=== PATIENT | female | born 1965 | race Caucasian/White ===

== ENCOUNTER 2020-02-05 09:05 | Outpatient (CLI) | payer BC ==
--- NOTE | 2020-02-05 09:30 | MMO ---
Bilateral MAMMO Bilat Screen [facility]. CLINICAL HISTORY: Patient is 54 years old and is seen for screening. The patient has no family history of breast cancer. The patient has no personal history of cancer. The patient has a history of right Cyst Aspiration in January, - Abscess. VIEWS: The views performed were: bilateral craniocaudal with tomosynthesis and bilateral mediolateral oblique with tomosynthesis. FILMS COMPARED: The present examination has been compared to prior imaging studies performed at [facility] on 02/01/2003 and 05/06/2003. This study has been interpreted with the assistance of computer-aided detection. MAMMOGRAM FINDINGS: The breasts are heterogeneously dense, which could obscure a lesion on mammography. There are no suspicious masses, suspicious calcifications, or new areas of architectural distortion. IMPRESSION: THERE IS NO MAMMOGRAPHIC EVIDENCE OF MALIGNANCY. A ROUTINE FOLLOW-UP MAMMOGRAM IN 1 YEAR IS RECOMMENDED. THE RESULTS OF THIS EXAM WERE SENT TO THE PATIENT. ACR BI-RADS Category 1 - Negative MAMMOGRAPHY NOTE: 1. A negative mammogram report should not delay a biopsy if a dominant of clinically suspicious mass is present. 2. Approximately 10% to 15% of breast cancers are not detected by mammography. 3. Adenosis and dense breasts may obscure an underlying neoplasm. Reported by: KASSI STALEY MD Electonically Signed: [id number]
== END 2020-02-05 09:06 | disposition home or self-care (01) ==
LOC: BICMAMMO 09:05
PROVIDERS: ATTEND Physician Assistant
DX: Z12.31 Encounter for screening mammogram for malignant neoplasm of breast (principal)
CPT/HCPCS: 77063; 77067

== ENCOUNTER 2020-03-03 06:41 | Outpatient (CLI) | payer BC, OTHER ==
[2020-03-03 18:16] LABS: INR-International Normal Ratio 0.9; Prothrombin Time 12.6 sec (12.0-14.7)
[2020-03-03 18:25] LABS: #Eosinphils 0.1 thou/uL (0.0-0.7); #Lymphocytes 1.4 thou/uL (1.20-3.40); #Monocytes 0.5 thou/uL (0.11-0.59); #Neutrophils 4.2 thou/uL (1.40-6.50); %Basophils 0.6 % (0.0-1.0); %Eosinophils 1.6 % (0.0-10.0); %Lymphocytes 22.9 % (21.0-51.0); %Monocytes 8.4 % (0.0-10.0); %Neutrophils 66.5 % (42.0-75.0); Mean Corpuscular HGB CONC 34.6 g/dL (32.0-36.0); Mean Corpuscular Hemoglobin 35.6 pg (27.0-31.0); Mean Platelet Volume 7.9 fL (7.4-10.4); Platelet Count 275 thou/uL (130-400); RBC Distribution Width 11.5 % (11.5-14.5); Red Blood Cell (RBC) Count 3.94 mill/uL (4.20-5.40); White Blood Cell (WBC) Count 6.3 thou/uL (4.8-10.8)
[2020-03-03 18:43] LABS: BHCG - Serum Negative (NEGATIVE); Pregs Control Background? CLEAR/WHITE (CLR/WHITE); Pregs Control Bar Appear? YES (CONTROL BAR)
[2020-03-04 11:35] LABS: SARS-CoV-2 MS2 Positive; SARS-CoV-2 N Gene Negative; SARS-CoV-2 S Gene Negative; SARS-CoV-2 by NAA Not Detected (NotDetected); SARS-CoV-2 orf1ab Negative
--- NOTE | 2020-03-04 14:58 | EKG ---
Test Reason : PREOP Blood Pressure : / mmHG Vent. Rate : 069 BPM Atrial Rate : 069 BPM P-R Int : 158 ms QRS Dur : 088 ms QT Int : 400 ms P-R-T Axes : 070 088 023 degrees QTc Int : 428 ms Normal sinus rhythm Low voltage QRS Borderline ECG No previous ECGs available Confirmed by DEBBY ROBERTS (2) on 03/04/2020 2:58:44 PM Referred By: Pili LEBRON Confirmed By:DEBBY ROBERTS
== END 2020-03-03 06:42 | disposition home or self-care (01) ==
LOC: LABBT 06:41
PROVIDERS: ATTEND Orthopaedic Surgery
DX: Z01.818 Encounter for other preprocedural examination (principal); M75.102 Unspecified rotator cuff tear or rupture of left shoulder, not specified as traumatic; Z20.828 Contact with and (suspected) exposure to other viral communicable diseases
CPT/HCPCS: 84703; 85025; 85610; 87635; 93005; 93010; U0003

== ENCOUNTER 2020-03-06 08:27 | Day surgery (SDC) | payer BC ==
[2020-03-05 11:24] VITALS: BMI 38.4
[2020-03-06] MEDS ORDERED: Fentanyl 100 MCG/2 ML VIAL ONE (08:59)
[2020-03-06] MEDS ORDERED: Midazolam HCl 2 mg/2 ml Vial ONE (08:59)
[2020-03-06] MEDS ORDERED: Ropivacaine 0.2% 550 ML 550 ML NERVE BLCK SCH (10:00)
[2020-03-06] MEDS ORDERED: HYDROcodone/Acetaminophen 5/325 mg Tablet PO PRN ×2 (10:00)
[2020-03-06] MEDS ORDERED: Promethazine HCl 25 MG/ML VIAL IM PRN (10:00)
[2020-03-06] MEDS ORDERED: traMADol HCl 50 MG TAB PO PRN ×2 (10:00)
[2020-03-06] MEDS ORDERED: Ondansetron PF 4 MG/2 ML Vial IVP PRN (10:00)
[2020-03-06] MEDS ORDERED: Zolpidem Tartrate 5 MG TAB PO PRN (10:00)
[2020-03-06] MEDS ORDERED: Bupivacaine/Epinephrine 0.25% 30 ML VIAL ONE (10:10)
[2020-03-06] MEDS ORDERED: Lidocaine 1% PF 5 ML VIAL ONE (11:46)
[2020-03-06] MEDS ORDERED: PHENYLEPHRINE-NS 100 MCG/ML 10 ML SYRINGE ONE ×2 (11:46)
[2020-03-06] MEDS ORDERED: Rocuronium Bromide 10 MG/ML (10ML VIAL) ONE (11:46)
[2020-03-06] MEDS ORDERED: Ropivacaine 0.5% HCl/PF (150 MG/30 ML VIAL) ONE (11:46)
[2020-03-06] MEDS ORDERED: Ropivacaine 0.2% HCl/PF (40 MG/20 ML VIAL) ONE (11:46)
[2020-03-06] MEDS ORDERED: Glycopyrrolate 0.2 MG/ML 5 ML SYRINGE ONE (11:46)
[2020-03-06] MEDS ORDERED: PROPOFOL 200 MG/20 ML VIAL ONE (11:46)
[2020-03-06] MEDS ORDERED: EPHEDRINE 25 MG/5 ML SYRINGE ONE (11:46)
[2020-03-06] MEDS ORDERED: Ketorolac Tromethamine 30 MG/ML VIAL IVP SCH (12:00)
[2020-03-06] MEDS ORDERED: SUGAMMADEX SODIUM 200 MG/2 ML VIAL ONE (12:12)
[2020-03-06] MEDS ORDERED: Ondansetron PF 4 MG/2 ML Vial ONE (13:23)
[2020-03-06] MEDS ORDERED: Promethazine HCl 25 MG/ML VIAL ONE (13:36)
--- NOTE | 2020-03-06 17:51 | OP ---
DATE OF PROCEDURE: 03/06/2020 PREOPERATIVE DIAGNOSIS: Left full-thickness rotator cuff tear with biceps rupture. POSTOPERATIVE DIAGNOSES: 1. Left full-thickness supraspinatus and infraspinatus tear. 2. Leading edge of subscapularis tear. 3. Biceps rupture. PROCEDURE PERFORMED: Left arthroscopic rotator cuff repair. SANITATION LABORER: None. ANESTHESIA: Dr. Zafar. The patient received general endotracheal intubation with interscalene block. ESTIMATED BLOOD LOSS: Less than 30 mL. TOURNIQUET TIME: None. IMPLANTS: Two 5.5 corkscrews, 2.9 PushLock, and 4.75 SwiveLock x2. ANTIBIOTICS: Ancef 2 g. COMPLICATIONS: None. HISTORY OF PRESENT ILLNESS: Ms. Rowell is a 54-year-old female with history of bariatric sleeve, left shoulder pain. She is an active department store general manager, has pain with overhead activities. I discussed with MRI evidence shows a full-thickness rotator cuff repair for rupture biceps. She understood the risks and benefits of arthroscopic repair to include pain, scar, bleeding, infection, damage to vital structures, decreased range of motion and strength, failure of repair, continued pain despite surgical intervention, damage to vital structures, loss of life or limb. The patient understood the risks and benefits and elects to proceed. DESCRIPTION OF PROCEDURE: Time-out was performed designating the patient's left upper extremity as the operative site based on site, consents, and marking. After time-out, the patient's left upper extremity was prepped and draped in sterile fashion. Posterior working portal was placed to visualize intra-articularly. Anterior working portal was placed and cannulas placed in position. I debrided off some of the bursa within the shoulder, all the ruptured biceps, all the intra-articular portion of the rotator cuff tear. I debrided the patient's footprint and found the subscap leading edge tear. I placed a bucket-handle #2 FiberWire and placed it on SwiveLock to help to abut the shoulder anteriorly and better stabilize it anteriorly. I then moved subacromially, placed our lateral working portal, debrided off the bursa, debrided the bone to help with bleeding footprint for application of my anchors, placed two 5.5 corkscrews, and then passed 4 stitches through the horizontal mattress stitches I placed all four knots down and then placed 2 lateral 4.75 SwiveLock to compress the cuff down. I cut the sutures, took final pictures, washed and closed with 3-0 nylon. The patient will begin elbow, wrist, and hand motion, remain in a sling until followup in 2 weeks. She will follow up with me in 2 weeks for begin passive range of motion, exercises of her shoulder. The patient's outlook is guarded because of the patient's previous bariatric surgery as well as her friability for tissues. We will continue to monitor throughout the course of fixation. Job ID: [id number]
== END 2020-03-06 15:15 | disposition home or self-care (01) ==
LOC: SDC 08:27
PROVIDERS: ATTEND Orthopaedic Surgery
PROC: 0LQ24ZZ Repair Left Shoulder Tendon, Percutaneous Endoscopic Approach (ICD-10-PCS; principal; 2020-03-06)
PROC: 0RNK4ZZ Release Left Shoulder Joint, Percutaneous Endoscopic Approach (ICD-10-PCS; principal; 2020-03-06)
DX: M75.122 Complete rotator cuff tear or rupture of left shoulder, not specified as traumatic (principal); S46.112A Strain of muscle, fascia and tendon of long head of biceps, left arm, initial encounter; M19.012 Primary osteoarthritis, left shoulder; K21.9 Gastro-esophageal reflux disease without esophagitis; M17.0 Bilateral primary osteoarthritis of knee; Z79.899 Other long term (current) drug therapy
CPT/HCPCS: A4306; C1713; J0690; J2250; J2405; J2550; J2704; J2795; J3010

== ENCOUNTER 2021-05-19 05:25 | Observation (INO) | payer BC ==
[2021-05-14 09:53] VITALS: BMI 36.2
[2021-05-19] MEDS ORDERED: ceFAZolin 2 GM/DEX 5% 100 ML BAG ONE (06:24)
[2021-05-19] MEDS ORDERED: Tranexamic Acid 1,000 MG/10 ML VIAL ONE (06:25)
[2021-05-19] MEDS ORDERED: Sodium Chloride 0.9% 100 ML ONE (06:26)
[2021-05-19] MEDS ORDERED: Fentanyl 100 MCG/2 ML VIAL ONE ×4 (06:29→14:13)
[2021-05-19] MEDS ORDERED: Midazolam HCl 2 mg/2 ml Vial ONE (06:29)
[2021-05-19] MEDS ORDERED: Lidocaine 1% (PF) 30 ML VIAL ONE (06:29)
[2021-05-19] MEDS ORDERED: Bupivacaine HCl 0.5%/Epinephrine 1:200,000/PF 30 ml Vial ONE (06:44)
[2021-05-19] MEDS ORDERED: Dexamethasone 20 MG/5 ML VIAL ONE (06:44)
[2021-05-19] MEDS ORDERED: PROPOFOL 200 MG/20 ML VIAL ONE (06:44)
[2021-05-19] MEDS ORDERED: Ondansetron PF 4 MG/2 ML Vial ONE (06:44)
[2021-05-19] MEDS ORDERED: ePHEDrine 50 MG/ML VIAL ONE (06:44)
[2021-05-19] MEDS ORDERED: Ketorolac Tromethamine 30 MG/ML VIAL ONE (06:44)
[2021-05-19] MEDS ORDERED: Lidocaine 1% PF 5 ML VIAL ONE (06:44)
[2021-05-19] MEDS ORDERED: Bupivacaine 0.25% 10 ML VIAL ONE ×3 (07:00→07:59)
[2021-05-19] MEDS ORDERED: Fentanyl 100 MCG/2 ML VIAL IV PRN (07:26)
[2021-05-19] MEDS ORDERED: traMADol HCl 50 MG TAB PO PRN (07:30)
[2021-05-19] MEDS ORDERED: Promethazine HCl 25 MG/ML VIAL IM PRN ×3 (07:30→15:25)
[2021-05-19] MEDS ORDERED: Ropivacaine 0.2% 550 ML 550 ML NERVE BLCK SCH (07:30)
[2021-05-19] MEDS ORDERED: HYDROcodone/Acetaminophen 10/325 mg Tablet PO PRN (07:30)
[2021-05-19] MEDS ORDERED: Ondansetron PF 4 MG/2 ML Vial IVP PRN (07:30)
[2021-05-19] MEDS ORDERED: Zolpidem Tartrate 5 MG TAB PO PRN ×2 (07:30→15:25)
[2021-05-19] MEDS ORDERED: Bupivacaine PF 0.5% 30 ML VIAL ONE (07:55)
[2021-05-19] MEDS ORDERED: HYDROmorphone 2 MG/ML VIAL SLOW IVP PRN (09:56)
[2021-05-19] MEDS ORDERED: PACU-Morphine 4MG/ML VIAL SLOW IVP PRN (09:56)
[2021-05-19] MEDS ORDERED: Ondansetron HCl/PF 4 MG/2 ML Vial IVP PRN (09:56)
[2021-05-19] MEDS ORDERED: Promethazine HCl 25 MG/ML VIAL IVPB PRN (09:56)
[2021-05-19] MEDS ORDERED: HYDROmorphone 0.5 MG/0.5 ML SYRINGE ONE ×3 (11:06→14:23)
[2021-05-19] MEDS ORDERED: Ketorolac Tromethamine 30 MG/ML VIAL IVP SCH (12:00)
[2021-05-19] MEDS ORDERED: diphenhydrAMINE 25 MG CAP PO PRN (15:25)
[2021-05-19] MEDS ORDERED: Acetaminophen 325 MG TAB PO PRN (15:25)
[2021-05-19] MEDS ORDERED: Multivitamin W/ Minerals 1 TAB PO SCH (15:25)
[2021-05-19] MEDS ORDERED: Aspirin 81 mg Enteric Coated Tablet PO SCH (15:45)
[2021-05-19] MEDS ORDERED: Ferrous Gluconate 324 MG TAB PO SCH (15:45)
[2021-05-19] MEDS ORDERED: Rizatriptan Benzoate 10 MG MLT TAB PO PRN (16:19)
[2021-05-19] MEDS ORDERED: FLU VACC QS2021-22(6MOS UP)/PF 60 MCG/0.5 ML SYRINGE IM ONE (17:15)
[2021-05-19] MEDS: Ondansetron PF 4 MG/2 ML Vial IVP PRN (17:55)
[2021-05-19] MEDS: ceFAZolin Sodium/D5W 2 GM in Premix Bag 1 BAG IVPB SCH ×2 (17:56→23:35)
[2021-05-19] MEDS: Sodium Chloride 0.9% 1,000 ML IV SCH (18:28)
[2021-05-19] MEDS ORDERED: Vancomycin HCl 1.5 GM in Sodium Chloride 0.9% 250 ML 300 ML IVPB SCH (20:00)
[2021-05-19] MEDS: Senokot S 8.6-50 MG TAB PO SCH (20:33)
[2021-05-19] MEDS: Aspirin 81 mg Enteric Coated Tablet PO SCH (20:33)
[2021-05-19] MEDS: Ferrous Gluconate 324 MG TAB PO SCH (20:33)
[2021-05-20] MEDS: Sodium Chloride 0.9% 1,000 ML IV SCH ×3 (02:09→23:03)
[2021-05-20 04:24] LABS: Mean Corpuscular HGB CONC 34.8 g/dL (32.0-36.0); Mean Corpuscular Hemoglobin 35.6 pg (27.0-31.0); Mean Platelet Volume 6.6 fL (7.4-10.4); Platelet Count 242 thou/uL (130-400); RBC Distribution Width 11.5 % (11.5-14.5); Red Blood Cell (RBC) Count 3.66 mill/uL (4.20-5.40)
[2021-05-20] MEDS: HYDROcodone/Acetaminophen 10/325 mg Tablet PO PRN ×3 (09:29→20:26)
[2021-05-20] MEDS: Ascorbic Acid 500 mg Chewable Tablet PO SCH (09:46)
[2021-05-20] MEDS: Senokot S 8.6-50 MG TAB PO SCH ×2 (09:46→20:19)
[2021-05-20] MEDS: Aspirin 81 mg Enteric Coated Tablet PO SCH ×2 (09:46→20:19)
[2021-05-20] MEDS: Ferrous Gluconate 324 MG TAB PO SCH ×2 (09:46→20:19)
[2021-05-20] MEDS: Potassium Chloride 10 MEQ TAB PO SCH (09:47)
[2021-05-20] MEDS: traMADol HCl 50 MG TAB PO PRN ×2 (11:47→19:09)
[2021-05-20] MEDS: Ondansetron PF 4 MG/2 ML Vial IVP PRN (14:53)
[2021-05-21] MEDS: HYDROcodone/Acetaminophen 10/325 mg Tablet PO PRN ×3 (03:25→13:27)
[2021-05-21 06:28] LABS: Hemoglobin 12.2 g/dL (12.0-16.0); Mean Corpuscular HGB CONC 33.3 g/dL (32.0-36.0); Mean Corpuscular Hemoglobin 34.8 pg (27.0-31.0); Mean Platelet Volume 7.1 fL (7.4-10.4); Platelet Count 233 thou/uL (130-400); RBC Distribution Width 11.6 % (11.5-14.5); White Blood Cell (WBC) Count 8.1 thou/uL (4.8-10.8)
[2021-05-21] MEDS: Ascorbic Acid 500 mg Chewable Tablet PO SCH (09:21)
[2021-05-21] MEDS: Aspirin 81 mg Enteric Coated Tablet PO SCH (09:22)
[2021-05-21] MEDS: Potassium Chloride 10 MEQ TAB PO SCH (09:22)
[2021-05-21] MEDS: Sodium Chloride 0.9% 1,000 ML IV SCH (09:22)
[2021-05-21] MEDS: Senokot S 8.6-50 MG TAB PO SCH (09:22)
[2021-05-21] MEDS: Ferrous Gluconate 324 MG TAB PO SCH (09:22)
[2021-05-21 11:37] VITALS: BP 125/85; TEMP 97.5
== END 2021-05-21 13:25 | disposition home or self-care (01) ==
LOC: SDC 05:25 → SJJU 06:48 → SDC 16:36 → EDSTATUS 05-20 09:00
PROVIDERS: ADMIT Orthopaedic Surgery; ATTEND Orthopaedic Surgery
PROC: 0SRC0J9 Replacement of Right Knee Joint with Synthetic Substitute, Cemented, Open Approach (ICD-10-PCS; principal; 2021-05-19)
PROC: 3E0T3BZ Introduction of Anesthetic Agent into Peripheral Nerves and Plexi, Percutaneous Approach (ICD-10-PCS; 2021-05-19)
DX: M17.0 Bilateral primary osteoarthritis of knee (principal); M21.161 Varus deformity, not elsewhere classified, right knee; K21.9 Gastro-esophageal reflux disease without esophagitis; D64.9 Anemia, unspecified; Z79.899 Other long term (current) drug therapy
CPT/HCPCS: 36415; 85027; 96372; 96374; 96375; 96376; A4306; C1713; C1776; G0378; J1100; J1170; J1885; J2001; J2250; J2405; J2550; J2704; J2795; J3010; J3370; J3490; J7050; S0020

== ENCOUNTER 2021-10-22 10:16 | Outpatient (CLI) | payer BC ==
[2021-10-22 12:29] LABS: INR-International Normal Ratio 0.9
[2021-10-22 12:31] LABS: #Eosinphils 0.1 10x3/uL (0.0-0.5); #Monocytes 0.4 10x3/uL (0.0-1.1); #Neutrophils 2.8 10x3/uL (1.5-8.4); %Basophils 0.6 % (0.0-2.0); %Eosinophils 2.2 % (0.0-6.0); %Lymphocytes 28.6 % (18.0-47.0); %Monocytes 7.7 % (0.0-10.0); %Neutrophils 60.7 % (40.0-75.0); Hemoglobin 13.5 g/dL (12.0-15.5); Mean Corpuscular HGB CONC 33.1 g/dL (32.0-36.0); Mean Corpuscular Hemoglobin 33.1 pg (27.0-33.0); Mean Platelet Volume 9.6 fl (7.4-10.4); Platelet Count 268 10x3/uL (150-450); RBC Distribution Width 13.1 % (11.5-14.5); Red Blood Cell (RBC) Count 4.08 10x6/uL (3.90-5.03); White Blood Cell (WBC) Count 4.7 10x3/uL (3.5-10.5)
[2021-10-22 12:47] LABS: Anion Gap 13 mmol/L (10-20); BUN (Urea Nitrogen) 16 mg/dL (9.8-20.1); Calc. Creatinine Clearance 0 mL/min (70-130); Calcium 9.3 mg/dL (7.8-10.44); Carbon Dioxide 29 mmol/L (22-29); Chloride 103 mmol/L (98-107); Glucose 85 mg/dL (70-105); Potassium 4.1 mmol/L (3.5-5.1); Sodium 141 mmol/L (136-145)
== END 2021-10-22 10:17 | disposition home or self-care (01) ==
LOC: LABBT 10:16
PROVIDERS: ATTEND Orthopaedic Surgery
DX: Z01.812 Encounter for preprocedural laboratory examination (principal); M17.12 Unilateral primary osteoarthritis, left knee; Z20.822 Contact with and (suspected) exposure to COVID-19
CPT/HCPCS: 80048; 85025; 85610; 87081; U0003; U0005

== ENCOUNTER 2021-10-27 05:27 | Observation (INO) | payer BC ==
[2021-10-23 11:32] VITALS: BMI 38.4
[2021-10-27] MEDS ORDERED: Sodium Chloride 0.9% 100 ML ONE ×2 (06:02→06:59)
[2021-10-27] MEDS ORDERED: Tranexamic Acid 1,000 MG/10 ML VIAL ONE (06:02)
[2021-10-27] MEDS ORDERED: Vancomycin (BATCH) 1.5 GRAM/300 ML BAG ONE (06:02)
[2021-10-27] MEDS ORDERED: Midazolam HCl 2 mg/2 ml Vial ONE ×2 (06:14→06:38)
[2021-10-27] MEDS ORDERED: fentaNYL Citrate/PF 100 MCG/2 ML SYRINGE ONE ×3 (06:15→09:56)
[2021-10-27] MEDS ORDERED: EPINEPHrine 1 MG/ML AMP ONE (06:23)
[2021-10-27] MEDS ORDERED: Bupivacaine 0.25% HCL 30 ML VIAL ONE (06:23)
[2021-10-27] MEDS ORDERED: Fentanyl 100 MCG/2 ML VIAL ONE ×2 (06:38→10:32)
[2021-10-27] MEDS ORDERED: Scopolamine 1.5 mg/72 hour Patch ONE (06:49)
[2021-10-27] MEDS ORDERED: CEFAZOLIN 2 GM VIAL ONE (06:59)
[2021-10-27] MEDS ORDERED: Lidocaine 1% PF 5 ML VIAL ONE (07:11)
[2021-10-27] MEDS ORDERED: ePHEDrine 50 MG/ML VIAL ONE (07:11)
[2021-10-27] MEDS ORDERED: Ondansetron PF 4 MG/2 ML Vial ONE (07:11)
[2021-10-27] MEDS ORDERED: Dexamethasone 20 MG/5 ML VIAL ONE (07:11)
[2021-10-27] MEDS ORDERED: PROPOFOL 200 MG/20 ML VIAL ONE (07:11)
[2021-10-27] MEDS ORDERED: Bupivacaine HCl 0.5%/Epinephrine 1:200,000/PF 30 ml Vial ONE (07:11)
[2021-10-27] MEDS ORDERED: PHENYLEPHRINE-NS 100 MCG/ML 10 ML SYRINGE ONE (07:11)
[2021-10-27] MEDS ORDERED: Succinylcholine 200 MG/10 ml SYRINGE FS ONE (07:11)
[2021-10-27] MEDS ORDERED: Fentanyl 100 MCG/2 ML VIAL SLOW IVP PRN (07:51)
[2021-10-27] MEDS ORDERED: HYDROcodone/Acetaminophen 10/325 mg Tablet PO PRN (08:00)
[2021-10-27] MEDS ORDERED: traMADol HCl 50 MG TAB PO PRN ×2 (08:00)
[2021-10-27] MEDS ORDERED: Zolpidem Tartrate 5 MG TAB PO PRN ×2 (08:00→10:44)
[2021-10-27] MEDS ORDERED: Promethazine HCl 25 MG/ML VIAL IM PRN ×3 (08:00→10:44)
[2021-10-27] MEDS ORDERED: Ropivacaine 0.2% 550 ML 550 ML NERVE BLCK SCH (08:00)
[2021-10-27] MEDS ORDERED: Ondansetron PF 4 MG/2 ML Vial IVP PRN ×2 (08:00→10:44)
[2021-10-27] MEDS ORDERED: Promethazine HCl 25 MG/ML VIAL IVPB PRN (09:20)
[2021-10-27] MEDS ORDERED: Ondansetron HCl/PF 4 MG/2 ML Vial IVP PRN (09:20)
[2021-10-27] MEDS ORDERED: Promethazine HCl 25 MG/ML VIAL ONE (09:50)
[2021-10-27] MEDS ORDERED: Acetaminophen 325 MG TAB PO PRN (10:44)
[2021-10-27] MEDS ORDERED: diphenhydrAMINE 25 MG CAP PO PRN (10:44)
[2021-10-27] MEDS ORDERED: Multivitamin W/ Minerals 1 TAB PO SCH (11:45)
[2021-10-27] MEDS ORDERED: Ferrous Gluconate 324 MG TAB PO SCH (11:45)
[2021-10-27] MEDS ORDERED: Aspirin 81 mg Enteric Coated Tablet PO SCH (11:45)
[2021-10-27] MEDS ORDERED: Senokot S 8.6-50 MG TAB PO SCH (12:00)
[2021-10-27] MEDS: Sodium Chloride 0.9% 1,000 ML IV SCH ×2 (12:08→20:44)
[2021-10-27] MEDS: Ketorolac Tromethamine 30 MG/ML VIAL IVP SCH ×2 (12:09→18:19)
[2021-10-27] MEDS: CEFAZOLIN 2 GM in Sodium Chloride 0.9% 100 ML IVPB SCH (16:12)
[2021-10-27] MEDS ORDERED: Vancomycin 1.5 GRAM/300 ML BAG 1.5 GM in Premix Bag 1 BAG IVPB SCH (18:00)
[2021-10-27] MEDS: Ferrous Gluconate 324 MG TAB PO SCH (20:38)
[2021-10-27] MEDS: Aspirin 81 mg Enteric Coated Tablet PO SCH (20:38)
[2021-10-27] MEDS: Senokot S 8.6-50 MG TAB PO SCH (20:38)
[2021-10-28] MEDS: Sodium Chloride 0.9% 1,000 ML IV SCH ×2 (00:35→14:35)
[2021-10-28] MEDS: CEFAZOLIN 2 GM in Sodium Chloride 0.9% 100 ML IVPB SCH (00:35)
[2021-10-28] MEDS: Ketorolac Tromethamine 30 MG/ML VIAL IVP SCH ×4 (00:36→18:10)
[2021-10-28 06:13] LABS: Hemoglobin 11.4 g/dL (12.0-16.0); Mean Corpuscular HGB CONC 33.1 g/dL (32.0-36.0); Mean Corpuscular Hemoglobin 34.9 pg (27.0-31.0); Mean Platelet Volume 6.6 fL (7.4-10.4); Platelet Count 204 thou/uL (130-400); RBC Distribution Width 12.3 % (11.5-14.5); Red Blood Cell (RBC) Count 3.26 mill/uL (4.20-5.40); White Blood Cell (WBC) Count 7.2 thou/uL (4.8-10.8)
[2021-10-28] MEDS ORDERED: Multivitamin W/ Minerals 1 TAB PO SCH (09:00)
[2021-10-28] MEDS: Ferrous Gluconate 324 MG TAB PO SCH (09:11)
[2021-10-28] MEDS: Aspirin 81 mg Enteric Coated Tablet PO SCH (09:11)
[2021-10-28] MEDS: Senokot S 8.6-50 MG TAB PO SCH (09:11)
[2021-10-28] MEDS: HYDROcodone/Acetaminophen 10/325 mg Tablet PO PRN ×2 (09:22→14:37)
[2021-10-28 16:41] VITALS: BP 144/85; TEMP 97.8
== END 2021-10-28 18:37 | disposition home or self-care (01) ==
LOC: SDC 05:27 → SURG B 10:44
PROVIDERS: ADMIT Orthopaedic Surgery; ATTEND Orthopaedic Surgery
PROC: 0SRD0J9 Replacement of Left Knee Joint with Synthetic Substitute, Cemented, Open Approach (ICD-10-PCS; principal; 2021-10-27)
PROC: 3E0T3BZ Introduction of Anesthetic Agent into Peripheral Nerves and Plexi, Percutaneous Approach (ICD-10-PCS; 2021-10-27)
DX: M17.12 Unilateral primary osteoarthritis, left knee (principal); K21.9 Gastro-esophageal reflux disease without esophagitis; Z79.899 Other long term (current) drug therapy; Z96.651 Presence of right artificial knee joint
CPT/HCPCS: 36415; 85027; 96374; 96375; 96376; A4306; C1713; C1776; G0378; J0171; J0690; J1100; J1885; J2250; J2405; J2550; J2704; J2795; J3010; J3370; J3490; J7050; S0020

== ENCOUNTER 2021-11-09 12:23 | Outpatient (CLI) | payer BC | END 2021-11-09 12:24 | disposition home or self-care (01) | LOC: LABBT 12:23 | PROVIDERS: ATTEND Orthopaedic Surgery | DX: T81.89XA Other complications of procedures, not elsewhere classified, initial encounter (principal); Z96.652 Presence of left artificial knee joint; Z20.822 Contact with and (suspected) exposure to COVID-19 | CPT/HCPCS: U0003; U0005 ==

== ENCOUNTER 2021-11-10 09:52 | Observation (INO) | payer BC ==
[2021-11-10] MEDS ORDERED: Vancomycin (BATCH) 1.5 GRAM/300 ML BAG ONE (10:24)
[2021-11-10] MEDS ORDERED: Scopolamine 1.5 mg/72 hour Patch ONE (11:17)
[2021-11-10] MEDS ORDERED: fentaNYL Citrate/PF 100 MCG/2 ML SYRINGE ONE (11:19)
[2021-11-10] MEDS ORDERED: Sodium Chloride 0.9% 100 ML ONE (11:27)
[2021-11-10] MEDS ORDERED: CEFAZOLIN 2 GM VIAL ONE (11:27)
[2021-11-10] MEDS ORDERED: Lidocaine 1% PF 5 ML VIAL ONE (11:43)
[2021-11-10] MEDS ORDERED: PROPOFOL 200 MG/20 ML VIAL ONE (11:43)
[2021-11-10] MEDS ORDERED: diphenhydrAMINE 25 MG CAP PO PRN (13:14)
[2021-11-10] MEDS ORDERED: Zolpidem Tartrate 5 MG TAB PO PRN (13:14)
[2021-11-10] MEDS ORDERED: Promethazine HCl 25 MG/ML VIAL IM PRN (13:14)
[2021-11-10] MEDS ORDERED: Ondansetron PF 4 MG/2 ML Vial IVP PRN (13:14)
[2021-11-10] MEDS ORDERED: Acetaminophen 325 MG TAB PO PRN (13:14)
[2021-11-10] MEDS ORDERED: Fentanyl 100 MCG/2 ML VIAL ONE (13:52)
[2021-11-10] MEDS: Sodium Chloride 0.9% 1,000 ML IV SCH (16:30)
[2021-11-10] MEDS ORDERED: HYDROcodone/Acetaminophen 10/325 mg Tablet PO PRN (16:33)
[2021-11-10] MEDS: HYDROcodone/Acetaminophen 10/325 mg Tablet PO PRN (16:53)
[2021-11-10 16:57] VITALS: BMI 38.5
[2021-11-10] MEDS ORDERED: Pantoprazole 40 MG VIAL IVP SCH (18:00)
[2021-11-10] MEDS: Aspirin 81 mg Enteric Coated Tablet PO SCH (20:34)
[2021-11-10] MEDS: CEFAZOLIN 2 GM in Sodium Chloride 0.9% 100 ML IVPB SCH (20:34)
[2021-11-10] MEDS ORDERED: Vancomycin 1.5 GRAM/300 ML BAG 1.5 GM in Premix Bag 1 BAG IVPB SCH (23:00)
[2021-11-11] MEDS: CEFAZOLIN 2 GM in Sodium Chloride 0.9% 100 ML IVPB SCH (04:07)
[2021-11-11] MEDS: Sodium Chloride 0.9% 1,000 ML IV SCH ×2 (04:08→09:13)
[2021-11-11] MEDS: Aspirin 81 mg Enteric Coated Tablet PO SCH (08:41)
[2021-11-11] MEDS: Ferrous Gluconate 324 MG TAB PO SCH ×2 (08:41→16:46)
[2021-11-11] MEDS: HYDROcodone/Acetaminophen 10/325 mg Tablet PO PRN ×2 (08:41→16:47)
[2021-11-11] MEDS ORDERED: Senokot S 8.6-50 MG TAB PO SCH (09:00)
[2021-11-11] MEDS ORDERED: Multivitamin W/ Minerals 1 TAB PO SCH (09:00)
[2021-11-11 12:30] VITALS: TEMP 98.5
[2021-11-11 17:04] VITALS: BP 157/91
== END 2021-11-11 18:15 | disposition home or self-care (01) ==
LOC: SDC 09:52 → SURG B 11:39
PROVIDERS: ADMIT Orthopaedic Surgery; ATTEND Orthopaedic Surgery
PROC: 0HQLXZZ Repair Left Lower Leg Skin, External Approach (ICD-10-PCS; principal; 2021-11-10)
DX: L76.82 Other postprocedural complications of skin and subcutaneous tissue (principal); I96 Gangrene, not elsewhere classified; K21.9 Gastro-esophageal reflux disease without esophagitis; Z79.82 Long term (current) use of aspirin; Z79.899 Other long term (current) drug therapy; Z96.653 Presence of artificial knee joint, bilateral; Z98.84 Bariatric surgery status; Y83.8 Other surgical procedures as the cause of abnormal reaction of the patient, or of later complication, without mention of misadventure at the time of the procedure
CPT/HCPCS: 36415; 85652; 86140; 87070; 87205; 96365; 96367; 96375; 96376; C9113; G0378; J0690; J2704; J3010; J3370; J3490; J7050

== ENCOUNTER 2024-01-22 13:52 | Inpatient (IN) | payer BC ==
[~2024-01-22 13:52] MED LIST: Iopamidol-370 76% 500 ML MDV (1 ML CHARGE) ONE
[2024-01-22 15:16] LABS: #Basophils 0.03 10x3/uL (0.0-0.2); %Basophils 0.3 % (0.0-1.0); %Lymphocytes 7.5 % (21.0-51.0); %Monocytes 7.3 % (0.0-10.0); %Neutrophils 83.7 % (42.0-75.0); Hematocrit 38.1 % (36.0-47.0); Hemoglobin 12.7 g/dL (12.0-16.0); Mean Corpuscular HGB CONC 33.3 g/dL (32.0-36.0); Mean Corpuscular Hemoglobin 32.7 pg (27.0-31.0); Mean Corpuscular Volume 98.2 fL (78.0-98.0); Mean Platelet Volume 9.1 fL (7.4-10.4); Platelet Count 361 10x3/uL (130-400); RBC Distribution Width 12.2 % (11.5-14.5); Red Blood Cell (RBC) Count 3.88 mill/uL (4.20-5.40)
[2024-01-22 15:22] LABS: BHCG - Serum Negative (NEGATIVE); Pregs Control Background? CLEAR/WHITE (CLR/WHITE); Pregs Control Bar Appear? YES (CONTROL BAR)
[2024-01-22 15:28] LABS: ALT (SGPT) 9 U/L (8-55); AST (SGOT) 12 U/L (5-34); Albumin 2.9 g/dL (3.5-5.0); Alkaline Phosphatase 104 U/L (40-110); Anion Gap 16 mmol/L (10-20); BUN (Urea Nitrogen) 12 mg/dL (9.8-20.1); Bilirubin, Total 0.7 mg/dL (0.2-1.2); Calc. Creatinine Clearance 0 mL/min (70-130); Calcium 9.3 mg/dL (7.8-10.44); Carbon Dioxide 25 mmol/L (22-29); Chloride 105 mmol/L (98-107); Estimated GFR 98; Globulin 4.4 g/dL (2.4-3.5); Glucose 103 mg/dL (70-105); Potassium 3.7 mmol/L (3.5-5.1); Protein, Total 7.3 g/dL (6.0-8.3); Sodium 142 mmol/L (136-145)
[2024-01-22 15:48] LABS: Influenza A by NAA Not Detected (NotDetected); Influenza B by NAA Not Detected (NotDetected); SARS-CoV-2 NAA Rapid Test Not Detected (NotDetected)
[2024-01-22] MEDS ORDERED: Sodium Chloride 0.9% 100 ML ONE (18:49)
[2024-01-22] MEDS ORDERED: Cefepime 2 GM VIAL ONE (18:49)
[2024-01-22] MEDS ORDERED: Ondansetron ODT 4 MG TAB SL PRN (19:45)
[2024-01-22] MEDS ORDERED: Ondansetron PF 4 MG/2 ML Vial IVP PRN (19:45)
[2024-01-22] MEDS ORDERED: LevoFLOXacin 750 mg/D5W 150 ml Premix Bag ONE (19:58)
[2024-01-22] MEDS: Sodium Chloride 0.9% 1,000 ML IV SCH ×2 (21:53→22:15)
[2024-01-22 22:00] VITALS: BMI 45.1
[2024-01-22] MEDS: HYDROcodone/Acetaminophen 5/325 mg Tablet PO PRN (22:14)
[2024-01-22] MEDS: Famotidine/PF 20 mg/2ml Vial SLOW IVP SCH (22:15)
[2024-01-22] MEDS: Vancomycin (BATCH) 2.5 GM in Premix 1 BAG IVPB SCH (22:15)
[2024-01-23] MEDS: Cefepime 1 GM in Sodium Chloride 0.9% 100 ML IVPB SCH (05:25)
[2024-01-23 06:21] LABS: #Basophils 0.04 10x3/uL (0.0-0.2); %Basophils 0.3 % (0.0-1.0); %Eosinophils 0.3 % (0.0-10.0); %Monocytes 6.9 % (0.0-10.0); %Neutrophils 83.1 % (42.0-75.0); Hemoglobin 12.2 g/dL (12.0-16.0); Mean Corpuscular HGB CONC 32.1 g/dL (32.0-36.0); Mean Corpuscular Hemoglobin 32.5 pg (27.0-31.0); Mean Corpuscular Volume 101.3 fL (78.0-98.0); Mean Platelet Volume 9.2 fL (7.4-10.4); Platelet Count 382 10x3/uL (130-400); RBC Distribution Width 12.5 % (11.5-14.5); Red Blood Cell (RBC) Count 3.75 mill/uL (4.20-5.40)
[2024-01-23 06:36] LABS: Vancomycin, Random 25.1 ug/mL (See Comment)
[2024-01-23 06:49] LABS: ALT (SGPT) 10 U/L (8-55); AST (SGOT) 12 U/L (5-34); Albumin 2.5 g/dL (3.5-5.0); Alkaline Phosphatase 106 U/L (40-110); Anion Gap 15 mmol/L (10-20); BUN (Urea Nitrogen) 13 mg/dL (9.8-20.1); Bilirubin, Total 0.6 mg/dL (0.2-1.2); Calc. Creatinine Clearance 159 mL/min (70-130); Calcium 8.9 mg/dL (7.8-10.44); Carbon Dioxide 23 mmol/L (22-29); Chloride 107 mmol/L (98-107); Estimated GFR 101; Globulin 4.5 g/dL (2.4-3.5); Glucose 94 mg/dL (70-105); Potassium 3.6 mmol/L (3.5-5.1); Sodium 141 mmol/L (136-145)
[2024-01-23] MEDS ORDERED: SUMAtriptan Succinate 50 MG TAB PO PRN (08:08)
[2024-01-23] MEDS: DULoxetine 30 MG CAP PO SCH (08:39)
[2024-01-23] MEDS: Pantoprazole DR 40 MG TAB PO SCH (08:39)
[2024-01-23] MEDS: Vancomycin HCl 750 MG in Sodium Chloride 0.9% 250 ML 250 ML IVPB SCH (08:39)
[2024-01-23] MEDS: Benzonatate 100 MG CAP PO PRN (09:47)
[2024-01-23 13:55] LABS: HIV (1/2) Antibody/Antigen NONREACTIVE (NonReactive); HIV 1/2 INDEX 0.05 S/CO (<1.00)
[2024-01-23] MEDS: Cefepime 2 GM in Sodium Chloride 0.9% 100 ML IVPB SCH ×2 (14:25→22:24)
[2024-01-23] MEDS: Vancomycin 1 GM in Premix 1 BAG IVPB SCH (20:52)
[2024-01-23] MEDS: guaiFENesin ER 600 MG TAB PO SCH (20:52)
[2024-01-24 04:57] LABS: #Basophils 0.03 10x3/uL (0.0-0.2); %Basophils 0.2 % (0.0-1.0); %Eosinophils 0.2 % (0.0-10.0); %Lymphocytes 6.4 % (21.0-51.0); %Monocytes 6.3 % (0.0-10.0); %Neutrophils 86.4 % (42.0-75.0); Hematocrit 36.4 % (36.0-47.0); Hemoglobin 11.9 g/dL (12.0-16.0); Mean Corpuscular HGB CONC 32.7 g/dL (32.0-36.0); Mean Corpuscular Hemoglobin 31.7 pg (27.0-31.0); Mean Corpuscular Volume 97.1 fL (78.0-98.0); Mean Platelet Volume 9.5 fL (7.4-10.4); Platelet Count 371 10x3/uL (130-400); RBC Distribution Width 12.1 % (11.5-14.5); Red Blood Cell (RBC) Count 3.75 mill/uL (4.20-5.40)
[2024-01-24 05:02] LABS: Anion Gap 16 mmol/L (10-20); BUN (Urea Nitrogen) 14 mg/dL (9.8-20.1); Calc. Creatinine Clearance 182 mL/min (70-130); Calcium 8.9 mg/dL (7.8-10.44); Carbon Dioxide 20 mmol/L (22-29); Chloride 107 mmol/L (98-107); Estimated GFR 105; Glucose 93 mg/dL (70-105); Potassium 3.6 mmol/L (3.5-5.1); Sodium 139 mmol/L (136-145)
[2024-01-24] MEDS: Amlodipine 5 MG TAB PO SCH (09:00)
[2024-01-24 11:30] LABS: ANA Symphony (Qualitative) Negative (Negative); ANA Symphony (Quantitative) 0.3 Ratio (< 0.7 Negative); dsDNA IgG Antibody 3.5 IU/mL (<10 Negative)
[2024-01-24] MEDS: guaiFENesin/Codeine 200 mg/20 mg 10 ml Cup PO PRN (16:58)
[2024-01-24] MEDS: Vancomycin 1 GM in Premix 1 BAG IVPB SCH (16:59)
[2024-01-25 04:16] LABS: #Basophils 0.03 10x3/uL (0.0-0.2); %Basophils 0.3 % (0.0-1.0); %Lymphocytes 7.8 % (21.0-51.0); %Monocytes 7.5 % (0.0-10.0); %Neutrophils 82.9 % (42.0-75.0); Hematocrit 34.7 % (36.0-47.0); Hemoglobin 11.4 g/dL (12.0-16.0); Mean Corpuscular HGB CONC 32.9 g/dL (32.0-36.0); Mean Corpuscular Hemoglobin 31.6 pg (27.0-31.0); Mean Corpuscular Volume 96.1 fL (78.0-98.0); Mean Platelet Volume 9.1 fL (7.4-10.4); Platelet Count 342 10x3/uL (130-400); RBC Distribution Width 12.3 % (11.5-14.5); Red Blood Cell (RBC) Count 3.61 mill/uL (4.20-5.40)
[2024-01-25 04:30] LABS: Vancomycin, Random 24.2 ug/mL (See Comment)
[2024-01-25 15:18] LABS: Cytoplasmic (C-ANCA) <1:20 titer (Neg:<1:20); Perinuclear (P-ANCA) <1:20 titer (Neg:<1:20)
[2024-01-26 06:30] LABS: Vancomycin, Random 20.6 ug/mL (See Comment)
[2024-01-26 07:24] LABS: QuantiFERON-TB Gold Plus Indeterminate (Negative)
[2024-01-26 08:22] VITALS: BP 149/94; TEMP 98.3
[2024-01-26] MEDS ORDERED: Vancomycin 1 GM in Premix 1 BAG IVPB SCH (23:59)
[2024-01-31 13:17] LABS: Fungitell Beta (1,3) D-Glucan Negative (.)
== END 2024-01-26 15:55 | disposition home or self-care (01) | DRG 194 ==
LOC: ERS 13:52 → T4-A 19:25
PROVIDERS: ADMIT Hospitalist; ATTEND Internal Medicine
DX: J18.9 Pneumonia, unspecified organism (principal); Z68.41 Body mass index [BMI] 40.0-44.9, adult; E66.01 Morbid (severe) obesity due to excess calories; Z79.899 Other long term (current) drug therapy; Z79.82 Long term (current) use of aspirin
CPT/HCPCS: 36415; 71045; 71046; 71260; 80048; 80053; 80202; 82565; 83605; 84145; 84703; 85025; 86037; 86038; 86141; 86225; 86480; 87040; 87070; 87081; 87116; 87205; 87206; 87389; 87449; 96374; 96375; J0692; J1956; J3370; J3370-JW; J3490; J7030; J7050; Q9967

== ENCOUNTER 2024-03-07 08:34 | Outpatient (CLI) | payer BC | END 2024-03-07 08:35 | disposition home or self-care (01) | LOC: RAD 08:34 | PROVIDERS: ATTEND Internal Medicine | DX: R06.00 Dyspnea, unspecified (principal); R91.8 Other nonspecific abnormal finding of lung field | CPT/HCPCS: 71046 ==